=== PATIENT | female | born 1940 | race Caucasian/White ===

== ENCOUNTER 2017-12-01 15:01 | Outpatient (CLI) | payer MEDICARE ==
--- NOTE | 2017-12-02 12:23 | Mammography Report ---
DIGITAL SCREENING MAMMOGRAM: 12/01/2017 CLINICAL INDICATION: A 77-year-old with family history of breast cancer, for screening. COMPARISON: 01/2016, 02/2012, 10/2010. TECHNIQUE: Routine CC and MLO projections were obtained of the breasts. Bilateral laterally exaggerated craniocaudal views. FINDINGS: Scattered fibroglandular tissue is present within the breasts. There are no dominant masses, suspicious microcalcifications, or secondary signs of malignancy. In comparison to the previous studies, there are no significant changes. ASSESSMENT: NO MAMMOGRAPHIC EVIDENCE OF MALIGNANCY. NO SIGNIFICANT INTERVAL CHANGES. RECOMMENDATION: Screening mammography is recommended annually. BIRADS category 1 - negative. STANDARD QUALIFYING STATEMENTS: 1. This examination was reviewed with the aid of Computed-Aided Detection (CAD). 2. A negative or benign imaging report should not delay biopsy if clinically suspicious findings are present. Consider surgical consultation if warranted. More than 5% of cancers are not identified by imaging. 3. Dense breasts may obscure an underlying neoplasm. TD: 12/02/2017 12:22
== END 2017-12-01 15:02 | disposition home or self-care (01) ==
LOC: DI 15:01
PROVIDERS: ATTEND Internal Medicine
DX: Z12.31 Encounter for screening mammogram for malignant neoplasm of breast (principal); Z80.3 Family history of malignant neoplasm of breast
CPT/HCPCS: 77067

== ENCOUNTER 2020-09-30 13:55 | Outpatient (CLI) | payer MEDICARE ==
--- NOTE | 2020-10-01 09:16 | Mammography Report ---
BILATERAL DIGITAL SCREENING MAMMOGRAM 3D/2D: 09/30/2020 CLINICAL: Routine screening. Comparison is made to exams dated: 12/01/2017 mammogram, 01/13/2016 mammogram, 02/23/2012 mammogram, and 10/23/2010 mammogram - [facility]. There are scattered fibroglandular elements in both breasts. There is an oval equal density focal asymmetry with an indistinct and circumscribed margin in the lef t breast at 4 o'clock middle depth. No other significant masses, calcifications, or other findings are seen in either breast. IMPRESSION: INCOMPLETE: NEEDS ADDITIONAL IMAGING EVALUATION The oval equal density focal asymmetry in the left breast is indeterminate. Mediolateral and spot co mpression views as well as additional views with possible ultrasound are recommended. This exam was interpreted at Station ID: [id number]. NOTE: For mammograms, a report in lay terms will be sent to the patient. Approximately 15% of breast malignancies will not be visualized mammographically. In the management of a palpable breast mass, a negative mammogram must not discourage biopsy of a clinically suspicious lesion. Electronically Signed By: Emeka George M.D. [email or web address]:09/30/2020 16:22:36 ACR BI-RADS Category 0: Incomplete 3340F PARENCHYMAL PATTERN: (A) - The breast(s) demonstrate(s) scattered fibroglandular densities. BI-RADS CATEGORY: (0) - 0 Mammo and US [id number] Immediate follow-up LATERALITY: (B)
== END 2020-09-30 13:56 | disposition home or self-care (01) ==
LOC: DI 13:55
DX: Z12.31 Encounter for screening mammogram for malignant neoplasm of breast (principal); R92.8 Other abnormal and inconclusive findings on diagnostic imaging of breast

== ENCOUNTER 2020-12-08 08:56 | Outpatient (CLI) | payer MEDICARE ==
--- NOTE | 2020-12-09 11:33 | Ultrasound Report ---
LIMITED ULTRASOUND OF LEFT BREAST: 12/08/2020 CLINICAL: Patient returns today to evaluate a focal asymmetry in the left breast. Comparison is made to exams dated: 12/08/2020 mammogram, 09/30/2020 mammogram, 12/01/2017 mammogram, 01/01 mammogram, 02/23/2012 mammogram, and 10/23/2010 mammogram - [facility]. Color flow ultrasound of the left breast 4 o'clock region was performed on the areas of interest. G ray scale images of the real-time examination were reviewed. There is a 0.4 cm x 0.2 cm x 0.3 cm oval cyst in the left breast at 4 o'clock middle depth. This ova l cyst is hypoechoic with a well-defined boundary, internal echoes, and posterior acoustic enhancemen t. This correlates with mammography findings. Color flow imaging demonstrates that there is no vascularity present. IMPRESSION: PROBABLY BENIGN The 0.4 cm x 0.2 cm x 0.3 cm oval cyst in the left breast is consistent with a complicated cyst and i s probably benign. A follow-up ultrasound in 6 months is recommended. A follow-up ultrasound in 6 months is recommended to demonstrate stability. This exam was interpreted at Station ID: [id number]. Electronically Signed By: Emeka George M.D. [email or web address]/:12/08/2020 10:38:51 Ultrasound BI-RADS: 3 Probably benign BI-RADS CATEGORY: (3) - 3 Ultrasound [id number] 6 month follow-up LATERALITY: (B)
--- NOTE | 2020-12-09 11:33 | Mammography Report ---
UNILATERAL LEFT DIGITAL DIAGNOSTIC MAMMOGRAM 3D/2D: 12/08/2020 CLINICAL: Patient returns today to evaluate a focal asymmetry in the left breast. Comparison is made to exams dated: 09/30/2020 mammogram, 12/01/2017 mammogram, 01/13/2016 mammogram, an d 02/23/2012 mammogram - [facility]. There are scattered fibroglandular elements in left breast. There is an oval low density focal asymmetry with an indistinct and circumscribed margin in the left breast at 4 o'clock middle depth. No other significant masses or calcifications are seen in the breast. IMPRESSION: INCOMPLETE: NEEDS ADDITIONAL IMAGING EVALUATION The oval low density focal asymmetry in the left breast is indeterminate. An ultrasound is recommend ed. Ultrasound will be performed immediately following the current exam. This exam was interpreted at Station ID: [id number]. NOTE: For mammograms, a report in lay terms will be sent to the patient. Approximately 15% of breast malignancies will not be visualized mammographically. In the management of a palpable breast mass, a negative mammogram must not discourage biopsy of a clinically suspicious lesion. Electronically Signed By: Emeka George M.D. ddp/:12/08/2020 09:39:48 ACR BI-RADS Category 0: Incomplete 3340F PARENCHYMAL PATTERN: (A) - The breast(s) demonstrate(s) scattered fibroglandular densities. BI-RADS CATEGORY: (0) - 0 Ultrasound [id number] Immediate follow-up LATERALITY: (B)
== END 2020-12-08 08:57 | disposition home or self-care (01) ==
LOC: DI 08:56
PROVIDERS: ATTEND Internal Medicine
DX: N60.02 Solitary cyst of left breast (principal)